=== PATIENT | male | born 2000 | race Two or more races ===

== ENCOUNTER 2023-11-22 15:41 | Emergency (ER) | payer SELFPAY ==
[~2023-11-22] VITALS: Ht 177.8 cm; Wt 80.0 kg
[2023-11-22 16:24] VITALS: O2SAT 100
[2023-11-22] MEDS: HYDROCODONE/ACETAMINOPHEN 5/325MG TABLET PO ONE (17:08)
[2023-11-22] MEDS: BACITRACIN ZINC OINT UDPKT TOP ONE (17:09)
[2023-11-22] MEDS: LIDOCAINE HCL/PF 1% 10 MG/ML 5ML VIAL INFIL ONE (17:09)
[2023-11-22] MEDS ORDERED: BO1 TP (18:05)
[2023-11-22] MEDS ORDERED: IBUP-2030 MT (18:05)
[2023-11-22 18:34] VITALS: BP 132/81; PULSE 60; RESP 12; TEMP 97.6
== END 2023-11-22 19:34 | disposition home or self-care (01) ==
LOC: ER 15:41
DX: S01.111A Laceration without foreign body of right eyelid and periocular area, initial encounter (principal); S40.011A Contusion of right shoulder, initial encounter; R51.9 Headache, unspecified; W18.39XA Other fall on same level, initial encounter; Y93.89 Activity, other specified; Y92.89 Other specified places as the place of occurrence of the external cause; Y99.8 Other external cause status
CPT/HCPCS: 73030; 70450; 70486; 12011; 99284; J3490; Z7610 ×2

== ENCOUNTER 2023-12-01 12:46 | Emergency (ER) | payer OTHER ==
[~2023-12-01] VITALS: Ht 177.8 cm; Wt 83.0 kg
[~2023-12-01 12:46] MED LIST: BO1 TP; IBUP-2030 MT
[2023-12-01 12:56] VITALS: BP 131/72; PULSE 99; RESP 16; TEMP 97.8; O2SAT 100
== END 2023-12-01 14:46 | disposition home or self-care (01) ==
LOC: ER 12:46
DX: S05.41XD Penetrating wound of orbit with or without foreign body, right eye, subsequent encounter (principal); X58.XXXD Exposure to other specified factors, subsequent encounter
CPT/HCPCS: 99281